=== PATIENT | male | born 1965 | race Two or more races ===

== ENCOUNTER 2020-12-29 21:36 | Inpatient (IN) | payer BC ==
[~2020-12-29] VITALS: Ht 188 cm; Wt 146.8 kg
[~2020-12-29 21:36] MED LIST: ALBU90AE PO; ALBUTEROL MDI; AZIT250T89 PO; DUONEB INH; PRED20TA PO
[2020-12-29] MEDS ORDERED: ALBUTEROL/IPRATROPIUM 2.5MG/0.5MG, 3 ML ONE ×2 (21:59→22:57)
[2020-12-29] MEDS ORDERED: methylPREDNISolone SOD SUCC 125 MG/2 ML ONE (21:59)
[2020-12-29] MEDS ORDERED: ALBUTEROL/IPRATROPIUM 2.5MG/0.5MG, 3 ML NPPB ONE (22:00)
[2020-12-29] MEDS ORDERED: methylPREDNISolone SOD SUCC 125 MG/2 ML IV ONE (22:00)
--- NOTE | 2020-12-29 22:25 | NUR ---
NEBULIZER FINISHED AND LUNG SOUNDS BILATERALLY CLEAR WITHOUT WHEEZING. HR 105. CALL SOLORIO IN REACH. CT CALLED TO NOTIFY THEM THAT PATIENT IS NOW READY FOR CT
[2020-12-29 22:29] LABS: BASOPHILS % (AUTO) 1 % (0-1); EOSINOPHILS % (AUTO) 14 % (1-7); LYMPHOCYTES % (AUTO) 28 % (22-44); MEAN CORPUSCULAR HEMOGLOBIN 28.4 pg (27.5-34.5); MEAN CORPUSCULAR HGB CONC 33.8 g/dL (33.2-36.2); MEAN PLATELET VOLUME 7.2 fL (7.4-10.4); MONOCYTES % (AUTO) 7 % (2-9); NEUTROPHILS % (AUTO) 52 % (42-75); PLATELET COUNT 292 x10^3/uL (130-400); RED BLOOD COUNT 4.85 x10^6/uL (4.38-5.82); RED CELL DISTRIBUTION WIDTH 13.9 % (9.4-14.8)
[2020-12-29 22:30] LABS: MD NO
[2020-12-29] MEDS ORDERED: DOXY50CA42 PO (22:30)
[2020-12-29 22:38] LABS: ALBUMIN 3.6 g/dL (3.4-5.0); ANION GAP 6 mmol/L (5-15); CALCIUM 8.3 mg/dL (8.5-10.1); CHLORIDE 110 mmol/L (98-107)
[2020-12-29 22:43] LABS: CREATININE 1.26 mg/dL (0.7-1.3); TROPONIN I < 0.015 ng/mL (0.000-0.045)
[2020-12-29] MEDS ORDERED: MAGNESIUM SULFATE PMX 2GM/50ML 50 ML IV ONE (23:00)
--- NOTE | 2020-12-29 23:00 | NUR ---
PATIENT BECOMING SOB. O2 SATURATION 90-92% AND AUDIBLE UPPER AIRWAY WHEEZING WITHOUT NEEDING AUSCULTATION. DR. ARZATE NOTIFIED AND VERBALLY INSTRUCTED RN TO GIVE ADDITIONAL DUO NEB. THIS WAS ADMINISTERED AT 2300.
[2020-12-29] MEDS ORDERED: MAGNESIUM SULFATE PMX 2GM/50ML 50 ML ONE (23:11)
[2020-12-29] MEDS: ALBUTEROL/IPRATROPIUM 2.5MG/0.5MG, 3 ML NPPB SCH (23:12)
--- NOTE | 2020-12-29 23:20 | NUR ---
PATIENT REPORTS "BREATHING IS A LITTLE BIT BETTER, JUST HARD TO GET UP ALL THIS MUCOUS". PATIENT CONTINUES TO HAVE C-COLLAR IN PLACE. UPPER AIRWAY AND THROUGHOUT LUNG WHEEZING AUSCULTATED POST 2ND DUO NEB
[2020-12-30] VITALS (8 sets, daily range): BP systolic 126–146; BP diastolic 73–99
[2020-12-30] MEDS ORDERED: ALBUTEROL/IPRATROPIUM 2.5MG/0.5MG, 3 ML ONE (00:04)
[2020-12-30] MEDS: ALBUTEROL/IPRATROPIUM 2.5MG/0.5MG, 3 ML NPPB SCH (00:05)
--- NOTE | 2020-12-30 00:21 | NUR ---
AFTER 3RD NEB PATIENT REPORTS BREATHING IS EASIER. O2 SATURATION 98% AND OBJECTIVELY PATIENT IS NOT SOB. WILL CONTINUE TO MONITOR BREATHING AND VS. CALL SOLORIO IN REACH. EXPIRATORY WHEEZING CONTINUES THROUGHOUT ALL LUNG ANDRE. UPPER AIRWAY WHEEZING IS NO LONGER HEARD. REMAINS AT BEDSIDE
[2020-12-30] MEDS ORDERED: DOCUSATE 100 MG CAPSULE PO PRN (01:00)
[2020-12-30] MEDS ORDERED: GUAIFENESIN/DM 200-20MG, 10ML UDC PO PRN (01:00)
[2020-12-30] MEDS ORDERED: ACETAMINOPHEN 325 MG TABLET PO PRN (01:00)
[2020-12-30] MEDS ORDERED: hydrALAzine 20 MG/ML, 1ML IVPush PRN (01:00)
[2020-12-30] MEDS ORDERED: SODIUM CHLORIDE 0.9% 1,000 ML IV SCH (01:00)
--- NOTE | 2020-12-30 01:04 | NUR ---
REPORT GIVEN TO [employer]AMAINE CARPENTER ON TELE UNIT
[2020-12-30 02:29] LABS: FREE T4 (FREE THYROXINE) 1.05 ng/dL (0.76-1.46); TROPONIN I < 0.015 ng/mL (0.000-0.045)
[2020-12-30] MEDS: ALBUTEROL HFA 90 MCG/SPRAY INH PRN ×3 (02:55→23:21)
[2020-12-30] MEDS: methylPREDNISolone SOD SUCC 40 MG/ML IVPush SCH ×4 (02:55→20:39)
[2020-12-30] MEDS: HEPARIN 5,000 UNITS/ML, 1ML SQ SCH ×3 (02:56→16:43)
[2020-12-30] MEDS: ALBUTEROL-IPRATROPIUM MDI INH INH SCH ×4 (06:00→20:39)
[2020-12-30 06:58] LABS: TROPONIN I < 0.015 ng/mL (0.000-0.045)
[2020-12-30] MEDS: DOXYCYCLINE 100MG TABLET PO SCH ×2 (08:57→20:39)
[2020-12-31 00:46] VITALS: BP 129/75
[2020-12-31] MEDS: HEPARIN 5,000 UNITS/ML, 1ML SQ SCH ×3 (00:46→16:34)
[2020-12-31] MEDS: methylPREDNISolone SOD SUCC 40 MG/ML IVPush SCH ×4 (03:00→21:59)
[2020-12-31 05:45] LABS: BASOPHILS % (AUTO) 1 % (0-1); EOSINOPHILS % (AUTO) 0 % (1-7); LYMPHOCYTES % (AUTO) 6 % (22-44); MEAN CORPUSCULAR HEMOGLOBIN 27.6 pg (27.5-34.5); MEAN CORPUSCULAR HGB CONC 32.6 g/dL (33.2-36.2); MEAN PLATELET VOLUME 7.4 fL (7.4-10.4); MONOCYTES % (AUTO) 2 % (2-9); NEUTROPHILS % (AUTO) 92 % (42-75); PLATELET COUNT 285 x10^3/uL (130-400); RED BLOOD COUNT 4.83 x10^6/uL (4.38-5.82); RED CELL DISTRIBUTION WIDTH 14.1 % (9.4-14.8)
[2020-12-31 05:56] LABS: ALANINE AMINOTRANSFERASE 34 U/L (12-78); ALBUMIN 3.4 g/dL (3.4-5.0); ANION GAP 9 mmol/L (5-15); CALCIUM 8.5 mg/dL (8.5-10.1); CHLORIDE 108 mmol/L (98-107); CREATININE 1.19 mg/dL (0.7-1.3)
[2020-12-31 06:06] LABS: ALKALINE PHOSPHATASE 58 U/L (45-117); BILIRUBIN,TOTAL 0.6 mg/dL (0.2-1.0); TOTAL PROTEIN 7.1 g/dL (6.4-8.2)
[2020-12-31 06:16] LABS: MD SCAN
[2020-12-31] MEDS: ALBUTEROL-IPRATROPIUM MDI INH INH SCH ×4 (06:19→19:40)
[2020-12-31 08:24] VITALS: BP 150/88
[2020-12-31] MEDS: DOXYCYCLINE 100MG TABLET PO SCH ×2 (08:55→21:59)
[2020-12-31] MEDS: GUAIFENESIN 200 MG TABLET PO SCH ×3 (12:42→21:59)
[2020-12-31 13:01] VITALS: BP 148/78
[2020-12-31 18:43] VITALS: BP 160/76
[2020-12-31] MEDS: ALBUTEROL HFA 90 MCG/SPRAY INH PRN (22:06)
[2021-01-01 00:26] VITALS: BP 155/94
[2021-01-01] MEDS: HEPARIN 5,000 UNITS/ML, 1ML SQ SCH ×2 (01:16→09:28)
[2021-01-01] MEDS: methylPREDNISolone SOD SUCC 40 MG/ML IVPush SCH ×2 (03:52→09:27)
[2021-01-01] MEDS: ALBUTEROL-IPRATROPIUM MDI INH INH SCH ×2 (05:48→10:20)
[2021-01-01] MEDS: GUAIFENESIN 200 MG TABLET PO SCH ×2 (05:49→09:28)
[2021-01-01 08:50] VITALS: BP 150/89
[2021-01-01 09:00] LABS: BASOPHILS % (AUTO) 0 % (0-1); EOSINOPHILS % (AUTO) 0 % (1-7); LYMPHOCYTES % (AUTO) 5 % (22-44); MEAN CORPUSCULAR HEMOGLOBIN 27.5 pg (27.5-34.5); MEAN CORPUSCULAR HGB CONC 32.3 g/dL (33.2-36.2); MEAN PLATELET VOLUME 7.4 fL (7.4-10.4); MONOCYTES % (AUTO) 1 % (2-9); NEUTROPHILS % (AUTO) 94 % (42-75); PLATELET COUNT 325 x10^3/uL (130-400); RED BLOOD COUNT 4.92 x10^6/uL (4.38-5.82); RED CELL DISTRIBUTION WIDTH 13.9 % (9.4-14.8)
[2021-01-01 09:05] LABS: ALANINE AMINOTRANSFERASE 35 U/L (12-78); ALBUMIN 3.5 g/dL (3.4-5.0); ANION GAP 9 mmol/L (5-15); CALCIUM 8.5 mg/dL (8.5-10.1); CHLORIDE 107 mmol/L (98-107); CREATININE 1.27 mg/dL (0.7-1.3)
[2021-01-01 09:18] LABS: ALKALINE PHOSPHATASE 61 U/L (45-117); BILIRUBIN,TOTAL 0.5 mg/dL (0.2-1.0); FREE T4 (FREE THYROXINE) 0.89 ng/dL (0.76-1.46)
[2021-01-01] MEDS: DOXYCYCLINE 100MG TABLET PO SCH (09:28)
[2021-01-01] MEDS ORDERED: ALBU8.5H8 INH (09:33)
[2021-01-01] MEDS ORDERED: IPRA3AMP30 INH (09:33)
[2021-01-01 10:06] LABS: MD SCAN
== END 2021-01-01 11:57 | disposition home or self-care (01) | DRG 191 ==
LOC: ED 23:36 → EDIP 12-30 00:35 → 4WST 12-30 01:35 → DCLOUNGE 01-01 11:45
PROVIDERS: ADMIT Family Medicine; ATTEND Family Medicine
DX: J44.1 Chronic obstructive pulmonary disease with (acute) exacerbation (principal); E66.2 Morbid (severe) obesity with alveolar hypoventilation; Z68.41 Body mass index [BMI] 40.0-44.9, adult; M47.812 Spondylosis without myelopathy or radiculopathy, cervical region; Z87.891 Personal history of nicotine dependence; W07.XXXA Fall from chair, initial encounter; S09.90XA Unspecified injury of head, initial encounter; Y93.89 Activity, other specified; Y92.89 Other specified places as the place of occurrence of the external cause; Y99.8 Other external cause status
CPT/HCPCS: 36415; 70450; 71045; 71275; 72125; 80048; 80053; 82040; 84439; 84443; 84481; 84484; 85025; 93005; 93306; 93880; 94640; 96374; 96375; 99285; G0378; J1644; J2920; J2930; J3475; J7030

== ENCOUNTER 2021-03-29 23:25 | Emergency (ER) | payer BC ==
[~2021-03-29] VITALS: Ht 188 cm; Wt 105.1 kg
[~2021-03-29 23:25] MED LIST changes: +ALBU8.5H8 INH; +DOXY50CA42 PO; +IPRA3AMP30 INH
[2021-03-29] MEDS ORDERED: ALBUTEROL/IPRATROPIUM 2.5MG/0.5MG, 3 ML ONE (23:42)
[2021-03-29] MEDS ORDERED: methylPREDNISolone SOD SUCC 125 MG/2 ML ONE (23:42)
[2021-03-30] MEDS ORDERED: ALBUTEROL/IPRATROPIUM 2.5MG/0.5MG, 3 ML NPPB PRN
[2021-03-30 00:09] LABS: BASOPHILS % (AUTO) 1 % (0-1); EOSINOPHILS % (AUTO) 17 % (1-7); LYMPHOCYTES % (AUTO) 29 % (22-44); MEAN CORPUSCULAR HEMOGLOBIN 27.3 pg (27.5-34.5); MEAN CORPUSCULAR HGB CONC 32.7 g/dL (33.2-36.2); MEAN PLATELET VOLUME 7.2 fL (7.4-10.4); MONOCYTES % (AUTO) 7 % (2-9); NEUTROPHILS % (AUTO) 46 % (42-75); PLATELET COUNT 332 x10^3/uL (130-400); RED BLOOD COUNT 4.86 x10^6/uL (4.38-5.82); RED CELL DISTRIBUTION WIDTH 13.7 % (9.4-14.8)
--- NOTE | 2021-03-30 00:09 | NUR ---
Breathing tx complete; patient states it helped a little bit.
[2021-03-30 00:10] LABS: MD NO
[2021-03-30 00:16] LABS: ALBUMIN 3.7 g/dL (3.4-5.0); ANION GAP 8 mmol/L (5-15); CALCIUM 8.4 mg/dL (8.5-10.1); CHLORIDE 110 mmol/L (98-107)
[2021-03-30 00:22] LABS: ALANINE AMINOTRANSFERASE 42 U/L (12-78); ALKALINE PHOSPHATASE 67 U/L (45-117); BILIRUBIN,TOTAL 0.2 mg/dL (0.2-1.0); CREATININE 1.27 mg/dL (0.7-1.3); TOTAL PROTEIN 7.1 g/dL (6.4-8.2); TROPONIN I < 0.015 ng/mL (0.000-0.045)
[2021-03-30] MEDS ORDERED: ALBUTEROL/IPRATROPIUM 2.5MG/0.5MG, 3 ML ONE (00:23)
[2021-03-30] MEDS ORDERED: BENZONATATE 100 MG CAPSULE ONE (01:17)
[2021-03-30] MEDS ORDERED: BENZONATATE 100 MG CAPSULE PO ONE (01:30)
[2021-03-30] MEDS ORDERED: PROMETHAZINE/COD. 10MG/6.25MG/5 ML ORAL SOL PO ONE (01:30)
[2021-03-30 02:07] VITALS: BP 147/83
--- NOTE | 2021-03-30 02:20 | NUR ---
Discharge instructions given. All questions and concerns addressed. Patient ambulatory with a steady gait. Beloningings with patient.
== END 2021-03-30 02:22 | disposition home or self-care (01) ==
LOC: ED 03-30 00:06
DX: J43.9 Emphysema, unspecified (principal); J20.9 Acute bronchitis, unspecified; R06.00 Dyspnea, unspecified; R06.02 Shortness of breath; R00.0 Tachycardia, unspecified
CPT/HCPCS: 36415; 71045; 80053; 83880; 84484; 85025; 93005; 94640; 99285; J7512